=== PATIENT | male | born 1960 | race Caucasian/White ===

== ENCOUNTER → 2017-01-09 | Day surgery (SDC) | payer MEDICARE, BC ==
[~2017-01-09] MED LIST: ASPI-630 PO; IV RINGERS,LACTATED 1000ML 1,000 ML IV SCH; LIDOCAINE 2% PF Vial for OR 5 ML VIAL. ONE; MELA3TAB2 PO; PROPOFOL 40 ML IV ONE; SENN-79 PO; SENN1TAB70 PO; TAMS0.4C2 PO; ZOLP5TAB5 PO
[2017-01-09 13:01] VITALS: BP 121/80
--- NOTE | 2017-01-10 11:01 | PATHOLOGY ---
PATHOLOGY REPORT * * * * * * * * FINAL DIAGNOSIS: A. Colon, rectum, biopsy: - Adenomatous polyp. B. Colon, sigmoid, biopsy: - Adenomatous polyp. (SK:[facility]; 01/10/2017) REPORT ELECTRONICALLY SIGNED BY: Tayo Long M.D. DATE/TIME: 01/10/2017 11:00 * * * * * * * * GROSS PATHOLOGY: A. Received in formalin labeled "Triny Pedraza, rectal polyp" is a 0.4 x 0.3 x 0.2 cm portion of pink-willson soft tissue. The apparent resection margin is inked black. The specimen is submitted in cassette A1. B. Received in formalin labeled "Triny Pedraza, sigmoid polyp" is a 0.4 x 0.4 x 0.3 cm portion of pink-willson soft tissue. The apparent resection margin is inked black. The specimen is bisected and submitted in cassette B1. ([facility] [place]; 01/09/2017) INITIAL CPT CODE(S): A; 75237 B; 34913 Professional services performed [place] [facility] [address] Technical services performed by [facility] at [address] [place] [address] [address] [address]. SPECIMEN(S) RECEIVED: A.Rectal polypectomy B.Sigmoid polyp CLINICAL HISTORY: History of polyps PATIENT: TRINY PEDRAZA /AGE: 609/27/1960 (Age: 56) PATIENT #: [id number] ALT CASE #: SPECIMEN COLLECTION DATE: 01/09/2017 SPECIMEN RECEIVED DATE: 01/09/2017 [facility] - [address] [place] [address] - PHONE: [phone] * * * END OF REPORT * * *
== END | disposition home or self-care (01) ==
LOC: ENDOS 10:45
PROVIDERS: ATTEND Internal Medicine Gastroenterology
DX: Z09 Encounter for follow-up examination after completed treatment for conditions other than malignant neoplasm (principal); Z86.010 Personal history of colon polyps; K64.0 First degree hemorrhoids; E78.00 Pure hypercholesterolemia, unspecified; K21.9 Gastro-esophageal reflux disease without esophagitis; F41.9 Anxiety disorder, unspecified; F17.200 Nicotine dependence, unspecified, uncomplicated; Z88.0 Allergy status to penicillin; Z86.69 Personal history of other diseases of the nervous system and sense organs; Z90.49 Acquired absence of other specified parts of digestive tract; Z87.442 Personal history of urinary calculi; Z87.39 Personal history of other diseases of the musculoskeletal system and connective tissue; Z91.048 Other nonmedicinal substance allergy status
CPT/HCPCS: 45385; 88305; J2704; J2001